=== PATIENT | male | born 1965 | race Caucasian/White ===

== ENCOUNTER → 2023-10-30 16:44 | Outpatient (REF) | payer OTHER, SELFPAY | LOC: RAD 16:44 | PROVIDERS: ATTENDING PHYSICIAN Nurse Practitioner Family; FAMILY PHYSICIAN Internal Medicine Geriatric Medicine | DX: R20.2 Paresthesia of skin (principal) | CPT/HCPCS: 70450 ==

== ENCOUNTER → 2023-10-31 06:30 | Outpatient (REF) | payer OTHER, SELFPAY ==
[2023-10-31 07:02] LABS: % Basophils 0.9 % (0-2); % Eosinophils 4.8 % (0-6); % Immature Granulocytes 0.2 % (0-0.5); % Lymphocytes 22.8 % (20.5-51.1); % Monocytes 7.3 % (1.7-9.3); Absolute Basophils 0.1 10^3/uL (0-0.2); Absolute Eosinophils 0.3 10^3/uL (0-0.7); Absolute Lymphocytes 1.3 10^3/uL (1.2-3.4); Absolute Monocytes 0.4 10^3/uL (0.1-0.6); Absolute Neutrophils 3.6 10^3/uL (1.4-6.5); Hematocrit 40.8 % (39.0-52.0); Hemoglobin 14.4 g/dL (13.0-18.0); Mean Corp Hgb Conc. 35.3 g/dL (33.0-37.0); Mean Corpuscular Hgb 32.2 pg (27.0-31.0); Mean Corpuscular Volume 91.3 fL (80.0-94.0); Mean Platelet Volume 8.6 fL (7.4-10.4); Nucleated Red Blood Cells % 0 % (-); Platelet Count 207 10^3/uL (130-400); Red Blood Cell Count 4.47 10^6/uL (4.70-6.10); Red Cell Dist. Width 12.8 % (11.5-14.5); White Blood Cell Count 5.6 10^3/uL (4.8-10.8)
[2023-10-31 07:20] LABS: ALT (SGPT) 19 U/L (0-50); AST (SGOT) 27 U/L (17-59); Albumin 4.5 g/dl (3.5-5.0); Alkaline Phosphatase 82 U/L (38-126); Blood Urea Nitrogen 9 mg/dl (9-20); Calcium 9.5 mg/dl (8.4-10.2); Carbon Dioxide 25 mmol/L (22-30); Chloride 104 mmol/L (98-107); Glucose 106 mg/dl (70-99); Potassium 4.3 mmol/L (3.5-5.1); Sodium 137 mmol/L (135-145); Total Bilirubin 0.7 mg/dl (0.2-1.3); Total Protein 7.7 g/dl (6.3-8.2); eGFR > 60.00
[2023-10-31 07:23] LABS: C-Reactive Protein < 5.00 mg/L (0.0-10.00)
[2023-10-31 07:29] LABS: Erythrocyte Sed Rate 17 mm/hour (0-20)
[2023-10-31 07:41] LABS: Free T4 0.89 ng/dl (0.78-2.19); Vitamin D, 25-OH*** 35.1 ng/mL (30-80)
[2023-10-31 07:54] LABS: TSH 1.82 uIU/ml (0.47-4.68)
[2023-10-31 08:14] LABS: Vitamin B12 484 pg/ml (239-931)
[2023-11-01 16:20] LABS: Lyme Antibody Screen, EIA Negative (Negative)
== END ==
LOC: REG 06:30
PROVIDERS: ATTENDING PHYSICIAN Nurse Practitioner Family
DX: R20.2 Paresthesia of skin (principal); R42 Dizziness and giddiness
CPT/HCPCS: 36415; 80053; 82306; 82607; 84439; 84443; 85025; 85652; 86140; 86618

== ENCOUNTER → 2023-11-03 07:05 | Outpatient (REF) | payer OTHER, SELFPAY | LOC: EMG 07:05 | PROVIDERS: ATTENDING PHYSICIAN Nurse Practitioner Family; FAMILY PHYSICIAN Internal Medicine Geriatric Medicine | DX: R20.0 Anesthesia of skin (principal) | CPT/HCPCS: 95886; 95909 ==

== ENCOUNTER → 2023-11-13 13:51 | Outpatient (REF) | payer OTHER, SELFPAY | LOC: HWRCS 13:51 | PROVIDERS: ATTENDING PHYSICIAN Nurse Practitioner Family; FAMILY PHYSICIAN Internal Medicine Geriatric Medicine | DX: R00.2 Palpitations (principal); R42 Dizziness and giddiness | CPT/HCPCS: 93225; 93226; 93306 ==

== ENCOUNTER → 2023-11-30 15:11 | Outpatient (REF) | payer OTHER, SELFPAY | LOC: RAD 15:11 | PROVIDERS: ATTENDING PHYSICIAN Nurse Practitioner Family; FAMILY PHYSICIAN Internal Medicine Geriatric Medicine | DX: R00.2 Palpitations (principal); R42 Dizziness and giddiness | CPT/HCPCS: 93880 ==

== ENCOUNTER → 2025-01-03 16:26 | Outpatient (REF) | payer OTHER, SELFPAY ==
[2025-01-03 17:44] LABS: Urine Albumin Negative (Neg - Trace); Urine Bilirubin Negative (Negative); Urine Character Clear (Clear); Urine Color Yellow; Urine Glucose Negative (Negative); Urine Ketone Negative (Negative); Urine Leukocyte Negative (Negative); Urine Nitrite Negative (Negative); Urine Occult Blood Negative (Negative); Urine Urobilinogen Negative (Neg - 1+)
[2025-01-03 17:49] LABS: % Basophils 0.5 % (0-2); % Eosinophils 2.1 % (0-6); % Immature Granulocytes 0.3 % (0-0.5); % Lymphocytes 27.3 % (20.5-51.1); % Monocytes 8.1 % (1.7-9.3); % Neutrophils 61.7 % (42.2-75.2); Absolute Eosinophils 0.1 10^3/uL (0-0.7); Absolute Lymphocytes 1.7 10^3/uL (1.2-3.4); Absolute Monocytes 0.5 10^3/uL (0.1-0.6); Absolute Neutrophils 3.9 10^3/uL (1.4-6.5); Hematocrit 40.4 % (39.0-52.0); Mean Corp Hgb Conc. 34.7 g/dL (33.0-37.0); Mean Corpuscular Volume 92.2 fL (80.0-94.0); Mean Platelet Volume 9.1 fL (7.4-10.4); Nucleated Red Blood Cells % 0 % (-); Platelet Count 253 10^3/uL (130-400); Red Blood Cell Count 4.38 10^6/uL (4.70-6.10); Red Cell Dist. Width 13.2 % (11.5-14.5); White Blood Cell Count 6.3 10^3/uL (4.8-10.8)
[2025-01-03 18:14] LABS: ALT (SGPT) 31 U/L (0-50); AST (SGOT) 32 U/L (17-59); Alkaline Phosphatase 88 U/L (38-126); Blood Urea Nitrogen 10 mg/dl (9-20); Calcium 9.6 mg/dl (8.4-10.2); Carbon Dioxide 25 mmol/L (22-30); Chloride 102 mmol/L (98-107); Glucose 90 mg/dl (70-99); HDL Cholesterol 56 mg/dl; LDL Cholesterol, Calculated 147 mg/dl; Potassium 4.5 mmol/L (3.5-5.1); Sodium 139 mmol/L (135-145); Total Bilirubin 1.1 mg/dl (0.2-1.3); Total Cholesterol 225 mg/dl (50-199); Total Protein 8.3 g/dl (6.3-8.2); Triglyceride 113 mg/dl (10-149); Very Low Density Lipoprotein 22 mg/dl (0-30); eGFR > 60.00
[2025-01-03 18:30] LABS: Vitamin D, 25-OH*** 31.7 ng/mL (30-80)
[2025-01-03 18:44] LABS: PSA, Total - Screen 1.03 ng/ml (0.0-4.0)
== END ==
LOC: REG 16:26
PROVIDERS: ATTENDING PHYSICIAN Internal Medicine Geriatric Medicine
DX: Z00.00 Encounter for general adult medical examination without abnormal findings (principal); C62.92 Malignant neoplasm of left testis, unspecified whether descended or undescended; E78.2 Mixed hyperlipidemia; R10.30 Lower abdominal pain, unspecified; R53.83 Other fatigue; E55.9 Vitamin D deficiency, unspecified; Z13.31 Encounter for screening for depression
CPT/HCPCS: 36415; 80053; 80061; 81003; 82306; 85025; G0103